=== PATIENT | male | born 1945 | race Caucasian/White ===

== ENCOUNTER → 2024-10-29 | Outpatient (CLI) | payer OTHER, SELFPAY ==
--- NOTE | 2024-10-29 15:03 | XR_ITS ---
Examination: Lumbar spine, 5 views Technique: Lumbar spine AP, lateral, coned lateral lower lumbar spine, bilateral obliques 5 views Exam date and time: October 29, 2024 1505 hours INDICATIONS: Onset lower back pain beginning one month ago. FINDINGS: Moderate osteopenia Moderate narrowing hip joints Lumbar dextroscoliosis 8 degrees Moderate diffuse facet arthropathy [id number] diffuse lumbar disc narrowing most prominent at L5-S1 IMPRESSION: [id number] diffuse lumbar degenerative disc disease, most prominent L5-S1
== END | disposition home or self-care (01) ==
LOC: CDIM 14:56
PROVIDERS: PCP Family Medicine; Referring Provider Student in an Organized Health Care Education/Training Program; Visit Provider Student in an Organized Health Care Education/Training Program
DX: M51.360 Other intervertebral disc degeneration, lumbar region with discogenic back pain only (principal); M51.370 Other intervertebral disc degeneration, lumbosacral region with discogenic back pain only
CPT/HCPCS: 72110

== ENCOUNTER → 2025-01-17 | Outpatient (CLI) | payer OTHER, SELFPAY ==
--- NOTE | 2025-01-17 | XR_ITS ---
Examination: Knee, right , 3 views Technique: Knee AP, lateral, oblique 3 views Date and time of exam: January 17, 2025 1238 hours INDICATIONS: Right knee pain beginning one month ago. FINDINGS: Moderate osteopenia. Mild narrowing medial and patellofemoral joints No fracture or dislocation IMPRESSION: Mild narrowing medial patellofemoral joints No fracture
== END | disposition home or self-care (01) ==
PROVIDERS: PCP Student in an Organized Health Care Education/Training Program; Referring Provider Student in an Organized Health Care Education/Training Program; Visit Provider Student in an Organized Health Care Education/Training Program
DX: M25.861 Other specified joint disorders, right knee (principal)
CPT/HCPCS: 73562